=== PATIENT | female | born 1960 | race Asian ===

== ENCOUNTER 2019-02-09 08:01 | Emergency (ER) | payer OTHER ==
[~2019-02-09] VITALS: Ht 149.9 cm; Wt 53.6 kg
[2019-02-09 08:09] VITALS: BP 167/96
--- NOTE | 2019-02-09 08:14 | NUR ---
Pt ambulates from triage to ED room with steady gait and balance. NADN. No obvious defecits observed.
[2019-02-09] MEDS ORDERED: DIPHENHYDRAMINE 25 MG CAPSULE PO ONE (08:30)
[2019-02-09] MEDS ORDERED: FAMOTIDINE 20 MG TABLET PO ONE (08:30)
--- NOTE | 2019-02-09 08:30 | NUR ---
LATE NOTE GILDARDOY FOR 823: Pt presents to ED with c/o hives on arms bilaterally, torso, and thighs bilaterally beginning approximately at 0630 today. Pt denies change in medicaitons, diet, or any topical products (makeup, etc.). Pt denies difficulty breathing, sob, cp, n/v/d, or syncope. Pt's airway is clear and unobstructed, and pt is able to speak in full sentences and maintain own secreations. NADN. Pt is hypertensive, see VS charting. Pt connected to NIBP and continous pulse ox. Call light within reach. No needs expressed at this time. Pt states, "my face feels hot and my fingers are really itchy."
[2019-02-09] MEDS ORDERED: DIPHENHYDRAMINE 25 MG CAPSULE ONE (08:34)
[2019-02-09] MEDS ORDERED: FAMOTIDINE 20 MG TABLET ONE (08:34)
[2019-02-09] MEDS ORDERED: AMLO-150 PO (08:44)
[2019-02-09] MEDS ORDERED: ATOR-2 PO (08:44)
[2019-02-09] MEDS ORDERED: CITA20TA9 PO (08:44)
[2019-02-09] MEDS ORDERED: LOSA25TA25 PO (08:44)
[2019-02-09] MEDS ORDERED: ASPI81TA14 PO (08:44)
[2019-02-09] MEDS ORDERED: PROP10TA16 PO (08:44)
--- NOTE | 2019-02-09 08:49 | NUR ---
Late note entry for 0838: Provided medication per EMAR. Pt appreciative. Pt states, "wow, the medication works fast, I can see improvement on my arms already."
--- NOTE | 2019-02-09 09:42 | NUR ---
Patient given discharge instructions and they have confirmed that they understand the instructions. Patient ambulatory with steady gait.
== END 2019-02-09 09:42 | disposition home or self-care (01) ==
LOC: ED 08:37
DX: L50.9 Urticaria, unspecified (principal); G43.909 Migraine, unspecified, not intractable, without status migrainosus; I10 Essential (primary) hypertension; E78.00 Pure hypercholesterolemia, unspecified
CPT/HCPCS: 99284; J7512; Q0163

== ENCOUNTER 2019-06-08 17:35 | Emergency (ER) | payer OTHER ==
[~2019-06-08] VITALS: Ht 149.9 cm; Wt 54.7 kg
[2019-06-08 18:54] VITALS: BP 169/92
== END 2019-06-08 20:06 | disposition home or self-care (01) ==
LOC: ED 19:54
DX: I10 Essential (primary) hypertension (principal); F32.9 Major depressive disorder, single episode, unspecified; E78.00 Pure hypercholesterolemia, unspecified
CPT/HCPCS: 36415; 80048; 93005; 99284

== ENCOUNTER 2019-10-04 17:49 | Emergency (ER) | payer OTHER ==
[~2019-10-04] VITALS: Ht 149.9 cm; Wt 52.2 kg
[~2019-10-04 17:49] MED LIST: AMLO-150 PO; ASPI81TA14 PO; ATOR-2 PO; CITA20TA9 PO; LOSA25TA25 PO; PROP10TA16 PO
[2019-10-04 18:09] VITALS: BP 141/73
--- NOTE | 2019-10-04 18:29 | NUR ---
PT HERE WITH C/O HIGH BLOOD PRESSURE, STATES SHE MISSED HER DOSE FRIDAY AND FRIDAY BUT TOOK IT TODAY. PT STATES "PULSATING FEELING IN HEAD BUT NO PAIN."
[2019-10-04 18:58] LABS: BASOPHILS # (AUTO) 0.05 x10^3/uL (0-0.1); BASOPHILS % (AUTO) 1 % (0-1); EOSINOPHILS # (AUTO) 0.16 x10^3/uL (0-0.4); EOSINOPHILS % (AUTO) 2 % (1-7); LYMPHOCYTES % (AUTO) 29 % (22-44); MD NO; MEAN CORPUSCULAR HEMOGLOBIN 28.2 pg (27.0-34.8); MEAN CORPUSCULAR HGB CONC 32.5 g/dL (32.4-35.8); MEAN CORPUSCULAR VOLUME 86.8 fL (80-100); MEAN PLATELET VOLUME 8.4 fL (7.4-10.4); MONOCYTES # (AUTO) 0.52 x10^3/uL (0.2-0.8); MONOCYTES % (AUTO) 6 % (2-9); NEUTROPHILS # (AUTO) 5.04 x10^3/uL (1.8-6.8); NEUTROPHILS % (AUTO) 62 % (42-75); PLATELET COUNT 329 x10^3/uL (130-400); RED CELL DISTRIBUTION WIDTH 13.2 % (9.6-15.2)
[2019-10-04 19:08] LABS: ALBUMIN 4.4 g/dL (3.4-5.0); ANION GAP 7 mmol/L (5-15); CALCIUM 9.8 mg/dL (8.5-10.1); CHLORIDE 102 mmol/L (98-107)
[2019-10-04 19:12] LABS: ALANINE AMINOTRANSFERASE 35 U/L (12-78); ALKALINE PHOSPHATASE 126 U/L (45-117); BILIRUBIN,TOTAL 0.3 mg/dL (0.2-1.0); CREATININE 0.94 mg/dL (0.55-1.02); TOTAL PROTEIN 8.9 g/dL (6.4-8.2); TROPONIN I < 0.015 ng/mL (0.000-0.045)
--- NOTE | 2019-10-04 19:57 | NUR ---
Patient/Caregiver given discharge instructions and they have confirmed that they understand the instructions. Patient ambulatory with steady gait.
== END 2019-10-04 20:01 | disposition home or self-care (01) ==
LOC: ED 19:50
DX: R07.89 Other chest pain (principal); I10 Essential (primary) hypertension; E78.00 Pure hypercholesterolemia, unspecified; M79.10 Myalgia, unspecified site
CPT/HCPCS: 36415; 71045; 80053; 84484; 85025; 93005; 99284

== ENCOUNTER 2021-05-04 00:21 | Emergency (ER) | payer OTHER, BC ==
[~2021-05-04] VITALS: Ht 149.9 cm; Wt 56.5 kg
--- NOTE | 2021-05-04 00:37 | NUR ---
BREAK RN: PT BIB VIA POV. PER PT "MY DOCTOR TOLD ME THAT I COULD CUT MY AMLODIPINE DOWN TO 5MG PER DAY ABOUT A MONTH AGO, BUT THEN I STARTED HAVING THIS WEIRD THROBBING IN MY HEAD. TODAY WHEN I CHECKED MY BLOOD PRESSURE IT WAS PAIGE HIGH AND I THINK IT IS BECAUSE OF THE MEDICATION." PT RESTING IN [facility], MONITORING IN PLACE, [place] AT THIS TIME, ALINE.
--- NOTE | 2021-05-04 00:45 | NUR ---
BREAK RN: LAB AT BEDSIDE TO DRAW PT AT THIS TIME.
[2021-05-04 00:59] LABS: BASOPHILS % (AUTO) 1 % (0-1); EOSINOPHILS % (AUTO) 2 % (1-7); LYMPHOCYTES % (AUTO) 42 % (22-44); MEAN CORPUSCULAR HGB CONC 33.3 g/dL (32.4-35.8); MEAN PLATELET VOLUME 8.9 fL (7.4-10.4); MONOCYTES % (AUTO) 7 % (2-9); NEUTROPHILS % (AUTO) 48 % (42-75); PLATELET COUNT 289 x10^3/uL (130-400); RED BLOOD COUNT 4.96 x10^6/uL (3.82-5.3); RED CELL DISTRIBUTION WIDTH 13.7 % (9.6-15.2)
[2021-05-04] MEDS ORDERED: SODIUM CHLORIDE FLUSH 10ML SYR IVF ONE (01:00)
[2021-05-04] MEDS ORDERED: SODIUM CHLORIDE 0.9% 1,000ML IVBOLUS ONE (01:00)
[2021-05-04 01:08] LABS: ALBUMIN 4.2 g/dL (3.4-5.0); ANION GAP 6 mmol/L (5-15); CALCIUM 10.1 mg/dL (8.5-10.1); CHLORIDE 102 mmol/L (98-107)
[2021-05-04 01:11] LABS: TROPONIN I < 0.015 ng/mL (0.000-0.045)
[2021-05-04 01:48] VITALS: BP 121/60
--- NOTE | 2021-05-04 01:49 | NUR ---
Patient given discharge instructions and they have confirmed that they understand the instructions. Patient ambulatory with steady gait. NAD, all questions answered appropriately, denies additional needs at this time. No personal belongings left in room after discharge.
== END 2021-05-04 02:04 | disposition home or self-care (01) ==
LOC: ED 02:00
DX: I10 Essential (primary) hypertension (principal); F41.1 Generalized anxiety disorder; R07.9 Chest pain, unspecified; R94.31 Abnormal electrocardiogram [ECG] [EKG]; G43.909 Migraine, unspecified, not intractable, without status migrainosus; E78.00 Pure hypercholesterolemia, unspecified
CPT/HCPCS: 36415; 71045; 80048; 82040; 84484; 85025; 93005; 96360; 99285; J7030

== ENCOUNTER → 2021-07-13 | Outpatient (CLI) | payer OTHER, BC | END | disposition home or self-care (01) | LOC: CVU 08:49 | PROVIDERS: ATTEND Internal Medicine Cardiovascular Disease | DX: I08.8 Other rheumatic multiple valve diseases (principal); I10 Essential (primary) hypertension | CPT/HCPCS: 93306 ==